=== PATIENT | male | born 1945 | race Caucasian/White ===

== ENCOUNTER → 2017-04-02 | Outpatient (CLI) | payer MEDICARE, OTHER ==
[~2017-04-02] MED LIST: ASPIRIN325 MG PO; COZAAR100 MG PO; CPAP INH; DAILY VITE1 EACH PO; GLUCOPHAGE500 MG PO; HYDRODIURIL25 MG PO; LIPITOR40 MG PO; MOBIC15 MG PO; OSTEO BI-FLEX1 EAC1 PO; PROTONIX40 MG PO
== END | disposition disaster alternative care site (69) ==
LOC: GRAD 12:19
DX: H53.19 Other subjective visual disturbances (principal); E11.9 Type 2 diabetes mellitus without complications; R29.818 Other symptoms and signs involving the nervous system

== ENCOUNTER → 2017-04-10 | Day surgery (SDC) | payer MEDICARE, OTHER ==
--- NOTE | ~2017-04-10 | ENPV ---
Carotid Duplex Study Demographics Patient Name ROSITA EUCEDA Date of Study 04/10/2017 Patient Number [id number] Gender Male Date of 1945 Age 71 Visit Number [id number] Height 71 Accession Number [id number] Weight 251.33 Referring Nancy Lindquist MD Physician Physician Physician Ordering Nancy Vision Therapist Physician Tamiko HOANG Pediatrician/Medical Doctor Katharina Allen BS, RT Conclusions Summary The right internal carotid artery has mild, 1-39% stenosis. The left internal carotid artery has mild, 1-39% stenosis. The right vertebral artery is present with antegrade flow. The left vertebral artery is present with antegrade flow. Procedure Type of Study: Cerebral:Carotid, Carotid Doppler Bilateral. Indications for Study:Stroke. Patient Status:Routine. Study Location:Inpatient Portable. Technical Quality:Adequate visualization. Velocities are measured in cm/s ; Diameters are measured in cm Carotid Right Measurements Carotid Left Measurements + +--------+--------+ + + + +--------+ --------+ + + !Location !PSV !EDV !Angle !%Stenosis ! !Location !PSV ! EDV !Angle !%Stenosis ! + +--------+--------+ + + + +--------+ --------+ + + !Prox CCA !176 !29 !60 ! ! !Prox CCA !130 ! 22 !60 ! ! + +--------+--------+ + + + +--------+ --------+ + + !Dist CCA !101 !29 !60 ! ! !Dist CCA !74 ! 17 !60 ! ! + +--------+--------+ + + + +--------+ --------+ + + !Prox ICA !70 !26 !60 ! ! !Prox ICA !99 ! 38 !60 ! ! + +--------+--------+ + + + +--------+ --------+ + + !Dist ICA !100 !40 !60 ! ! !Dist ICA !92 ! 31 !60 ! ! + +--------+--------+ + + + +--------+ --------+ + + !Prox ECA !131 ! !60 ! ! !Prox ECA !83 ! !60 ! ! + +--------+--------+ + + + +--------+ --------+ + + !Vertebral !42 ! !60 ! ! !Vertebral !131 ! !60 ! ! + +--------+--------+ + + + +--------+ --------+ + + !Subclavian !121 ! !60 ! ! !Subclavian !159 ! !60 ! ! + +--------+--------+ + + + +--------+ --------+ + + - There is antegrade vertebral flow noted on the right side. - There is antegrade verte bral flow noted on the left side. - Add'l Measurements:ICAPSV/CCAPSV 0.57.ICAEDV/CCAEDV 1.39. - Add'l Measurements:ICAPS V/CCAPSV 0.76.ICAEDV/CCAEDV 1.72. Signature dtt: Iker Maxwell dtnicolás: 04/10/17 1013 Physician Self Edit
--- NOTE | ~2017-04-10 | ECHO ---
Transesophageal Echocardiography Report ([facility]) Demographics Patient Name ROSITA EUCEDA Date of Study 04/10/2017 Patient Number [id number] Visit Number [id number] Date of 1945 Room Number Gender Male Number Age 71 year(s) Referring Aidan Doris Alejandro Medical Diagnostic Radiographer Isauro Garcia RVT, Physician RDCS Nancy Morrison MD Physician Interpreting Nancy Morrison Manager Health Physician MD Supervising Ordering Nancy Morrison MD/MLP Physician MD Nurse Stress Internal Auditor Conclusions Summary Normal LV/RV size and systolic function. Normal biatrial sizes. There is no LA or LA appendage thrombus or spontaneous contrast. There is no evidence of patent foramen ovale or atrial septal defect by color Doppler. Informed consent was obtained, bubble study was done, there is no evidence for a PFO or ASD. Moderate AI. No e/o cardiac source of emboli noted on JO[facility]EL. Procedure Type of Study [facility] procedure:Color Doppler. Procedure Date Date: 04/10/2017 Start: 09:40 AM Study Location: Inpatient Portable Technical Quality: Adequate visualization Indications:CVA. Appropriate Use Criteria: 8 Patient Status: Routine Rhythm: NSR HR: 84 bpm BP: 153/79 mmHg [facility] Performed By: the attending and the director trade Doppler Measurements AV P1/2t: 288 msec Findings Left Ventricle Normal right ventricular size and systolic function. Right Ventricle Normal right ventricular size and function. Left Atrium There is no LA or LA appendage thrombus or spontaneous contrast. The left atrium is normal in size. There is no evidence of patent foramen ovale or atrial septal defect by color Doppler. Informed consent was obtained, bubble study was done, there is no evidence for a PFO or ASD. Right Atrium The right atrium is not dilated. Mitral Valve Normal mitral valve structure and function. Aortic Valve The aortic valve is mildly sclerotic. There is moderate aortic regurgitation by color Doppler. Supplemental 2D echo images obtained Tricuspid Valve Normal appearing tricuspid valve. Pulmonic Valve Normal pulmonic valve structure and function. Miscellaneous The patient was brought to the [facility] lab in the fasting state after informed consent was obtained in the written and verbal format. Bite block was placed by mo. Once adequate anesthesia was obtained with anesthesia guidance with propofol sedation the [facility]EL probe was placed by me down into the stomach. It was pulled back slightly after a few views were obtained in the transgastric level to the transesophageal position where the majority of the case was carried out. At the end of the case the probe was rotated and withdrawn. Patient tolerated the procedure well. No plaque seen in the thoracic aorta. The aortic root and ascending aorta are normal in size. Signature dtt: JACQUIE RAMSAY dtd: 04/10/17 0940 Physician Self Edit
== END | disposition disaster alternative care site (69) ==
LOC: GOPD 04-09 → EDSTATUS 09:00 → GOPD 09:00 → GSDC 09:03
DX: Z86.73 Personal history of transient ischemic attack (TIA), and cerebral infarction without residual deficits (principal); I10 Essential (primary) hypertension; E11.9 Type 2 diabetes mellitus without complications; E78.5 Hyperlipidemia, unspecified; G47.33 Obstructive sleep apnea (adult) (pediatric); J06.9 Acute upper respiratory infection, unspecified; E66.9 Obesity, unspecified; Z68.36 Body mass index [BMI] 36.0-36.9, adult; Z85.46 Personal history of malignant neoplasm of prostate; Z87.891 Personal history of nicotine dependence; Z98.890 Other specified postprocedural states; Z79.82 Long term (current) use of aspirin; Z79.84 Long term (current) use of oral hypoglycemic drugs; Z79.899 Other long term (current) drug therapy
CPT/HCPCS: J2001; J7030